=== PATIENT | male | born 1950 | race Caucasian/White ===

== ENCOUNTER 2019-01-31 09:53 | Outpatient (CLI) | payer OTHER, MEDICARE, SELFPAY ==
[2019-01-18 10:01] VITALS: BMI 37.0
--- NOTE | 2019-01-18 11:12 | HP_ITS ---
HPI HPI History of Present Illness Surgical H&P: Yes Details: This is a 68-year-old white male who presents today for outpatient cardiovascular consultation. He has been referred for concerns of shortness of breath/dyspnea, lower extremity edema, and findings of aortic valve stenosis and a sending aortic aneurysm. He states that he has had shortness of breath and dyspnea for at least 20 years which she is attributed to asthma. 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 He states that he has had a cardiac murmur ever since he has been a child. He denies any ongoing chest discomfort. He has not had orthopnea or PND. He has had the concerns of chronic shortness of breath and dyspnea and chronic lower extremity edema. There is been no near syncope or syncope. It appears he had a transthoracic echocardiogram performed at [facility] on 08/19/2013. According to the report the left ventricle was normal at that time with an LVEF of 63% with a report of severe aortic valve stenosis with a valve area reported at 0.8 cm? and a mildly dilated a sending aorta at 3.9 cm. He states the best of his knowledge she had no cardiovascular testing performed after that until this year. In October of this year through the [facility] system he had a transthoracic echocardiogram performed. According to the report his left ventricle was noted to have diminished LV systolic function with an estimated LVEF of approximately 41%. The aortic valve was reported as demonstrating severe aortic valve stenosis with an aortic valve area of 0.81 cm?. There was concern that he may have a low flow low gradient severe aortic valve stenosis. His aorta was reported as dilated at 4.2 cm. He states he has had no other cardiovascular testing performed. He notes his medications were altered. He was removed from HCTZ and amlodipine. He was placed on furosemide. He notes since being on furosemide his breathing has improved as well as his lower extremity edema. He states he was referred to the [facility] [place] to see a mobile marketing specialist. He states he was referred there to be considered for a possible aortic valve replacement [id number]. However he states he knows the mobile marketing specialist is not want to perform such a procedure and he also knows he is not seeing a cardiovascular surgeon. He states that he has no other information regarding his [facility] visit and prefers not to go to the [facility] at this time if he can be evaluated locally. Thus he requested follow-up with this office. He had an ECG performed in the office today. He was noted to be in sinus rhythm with a left axis deviation and a left anterior fascicular block and poor R wave progression. He had a nonspecific T wave abnormality. Intake Vital Signs 01/18/19 Height 5 ft 9 in 01/18/19 Weight: 251 lb 6 oz 01/18/19 Body Mass Index (BMI) 37.0 01/18/19 Blood Pressure 120/76 01/18/19 Blood Pressure Location Lt brachial 01/18/19 Respiratory Rate 16 01/18/19 Pulse Rate 72 01/18/19 Pulse Source Auscultation Intake Visit Reasons: CHF/Edema/Aortic valve stenosis/Ref. Roxann Montoya Sales Service Technician Required: No Accompanied by: Allergies No Known Allergies Allergy (Unverified 01/18/19 10:01) Medications albuterol sulfate 2.5 mg/3 mL (0.083 %) solution for nebulization 2.5 mg INHALATION Q4H PRN 01/09/19 [History Confirmed 01/18/19] albuterol sulfate HFA 90 mcg/actuation aerosol inhaler 2 puff INHALATION Q4H PRN g 01/09/19 [History Confirmed 01/18/19] atorvastatin 20 mg tablet 20 mg PO QHS 01/09/19 [History Confirmed 01/18/19] betamethasone valerate 0.1 % topical cream 1 applic TOPICAL BID 01/09/19 [History Confirmed 01/18/19] aspirin 81 mg tablet,delayed release 81 mg PO DAILY #1 tab 01/18/19 [Rx Confirmed 01/18/19] furosemide 40 mg tablet 40 mg PO DAILY 01/18/19 [History Confirmed 01/18/19] lisinopril 20 mg tablet 20 mg PO DAILY 01/18/19 [History Confirmed 01/18/19] potassium chloride ER 10 mEq tablet,extended release 20 meq PO DAILY tab 01/18/19 [History Confirmed 01/18/19] [facility] Medical History (Updated 01/18/19 @ 10:10 by Antonia Lopez) Asthma (Chronic) Mixed hyperlipidemia (Chronic) Ascending aorta dilatation (Chronic) Non-rheumatic aortic stenosis (Chronic) Essential hypertension (Chronic) Chronic systolic (congestive) heart failure (Chronic) Surgical History History of cholecystectomy (Resolved) History of hemorrhoidectomy (Resolved) History of inguinal hernia repair (Resolved) History of tonsillectomy and adenoidectomy (Resolved) Family History Mother Hypertension Father Diabetes Lymphoma Social History (Updated 01/18/19 @ 11:12 by Jerry Poole MD) Smoking Status: Former smoker alcohol intake: never substance use type: does not use caffeine: Yes Type: carbonated beverages Number of servings: 4, coffee Number of servings: 1 ROS Const Const: Negative for fatigue, weakness, frequent falls, excessive sweating, weight gain or weight loss Eyes Eyes: Negative for transient loss of vision, blurry vision or change in vision ENT ENT: Negative for dizziness or balance problems Cardio Chest Pain: No Palpitations: No Edema: None Muscle aches with walking: None Resp Respiratory: Positive for SOB with activity (baseline) and other (HX Asthma); negative for SOB at rest GI GI: Negative vomiting or vomiting blood/hematemesis : Negative for hematuria Musc Musc: Negative for muscle aches/ myalgia, muscle weakness, joint pain or balance problems Skin Skin: Negative non-healing lesions or rash Neuro Neuro: Negative for dizziness, lightheadedness, orthostatic symptoms, frequent falls, weakness or blurry vision Joshua Hematologic/Lymphatic: Negative for easy bleeding Endo Endo: Negative for fatigue or excessive sweating Psych Psych: Negative for anxiety or depression Allergy Allergy/Immunology: Negative for hives, Negative for rash Cardiology Exam Const Appearance: cooperative, healthy appearing, comfortable, no acute distress, well developed and well groomed Nutritional Appearance: overweight Orientation: alert, awake and oriented x3 Head Head: normal to inspection, normocephalic and atraumatic Ears: hearing grossly normal bilaterally Nose: external nose normal Face and Sinus: face symmetric Mouth: oral mucosae normal Teeth and gingiva: fair dentition Eyes Eyelids: eyelids normal Pupils: PERRL EOM: EOM intact bilaterally Neck Neck: normal visual inspection Carotids: normal carotid upstroke Chest Chest inspection: normal inspection of the chest, symmetric chest movement and normal respiratory effort Auscultation: Bilateral: Clear to Auscultation Cardio Palpation: normal PMI Rate: regular rate Rhythm: regular rhythm Heart sounds: S1 normal and diminished A2 Murmur: Grade 3/6, harsh, mid systolic, apex, LVOT and sternal notch GI GI: normal to inspection, soft and bowel sounds present Neuro General: alert, awake, gait normal and moves all extremities Skin Skin: no rashes or lesions noted Extremities Pulses: Normal: Right Radial Pulse, Left Radial Pulse Lower Extremity Edema: Trace: Bilateral Psych Psychological: normal affect Assessment & Plan 1. Non-rheumatic aortic stenosis I35.0 Plan He has history of having an cardiac murmur his whole life raises a question is whether or not he may have a bicuspid aortic valve. It appears there was a recommendation in 2013 for consideration for transesophageal echocardiogram although he states that was never performed. From the standpoint of his aortic valve this may be an etiology for some of his symptoms with his shortness of breath/dyspnea. It would not be unreasonable to further evaluate his aortic valve as to whether it is truly a bicuspid versus tricuspid aortic valve. This would include proceeding with a transesophageal echocardiogram. The procedure and risks were discussed with him. He was agreeable to this approach. Also, it would not be unreasonable to consider further evaluation with diagnostic cardiac catheterization. This would help gain additional information with respect to his hemodynamics as well as whether or not he has any underlying coronary artery disease contributing to his diminished LV systolic function. The procedure and risks were discussed with him and he was agreeable to this approach. In the meantime he will continue medical management. Orders Orders: 12 Lead EKG performed by [facility] Today Left & Right Heart Cath Today Echo Transesophageal (SULMA) Today Chest PA and Lateral Today 2. Ascending aorta dilatation I77.810 Plan He has ascending aorta is reported as dilated. He can proceed with further evaluation both noninvasively and invasively as noted above. However he may need a chest CT scan as well to further evaluate his thoracic aorta. Orders Orders: Left & Right Heart Cath Today Echo Transesophageal (SULMA) Today Chest PA and Lateral Today Chest WITH Contrast Today 3. Chronic systolic CHF (congestive heart failure) I50.22 Plan He does have symptoms compatible with CHF. They have improved with his diuretic therapy. As his LV function is diminished it would be prudent to consider further evaluation. Based upon his clinical scenario there would be concern as to whether or not not only does he have valvular heart disease but whether or not he has coronary artery disease contributing to his diminished LV systolic function. Thus further evaluation as noted above appears to be prudent at this time. The meantime he will continue medical therapy with the addition of aspirin 81 mg p.o. daily. Orders Orders: 12 Lead EKG performed by [facility] Today Left & Right Heart Cath Today Echo Transesophageal (SULMA) Today Chest PA and Lateral Today 4. Cardiomyopathy, unspecified type I42.9 Plan He is described as having a cardiomyopathy. Again it is unclear as to whether this is valvular related or potentially related to a another etiology such as underlying CAD. He does have CAD risk factors. Thus he will continue medical management and proceed with evaluation as noted above. 5. Mixed hyperlipidemia E78.2 Plan He will continue his lipid-lowering therapy. Orders Orders: Left & Right Heart Cath Today Echo Transesophageal (SULMA) Today Chest PA and Lateral Today 6. Essential hypertension I10 Plan He will continue his antihypertensive therapy. Orders Orders: 12 Lead EKG performed by [facility] Today Left & Right Heart Cath Today Echo Transesophageal (SULMA) Today Chest PA and Lateral Today Plan Detail Other Medications New: aspirin 81 mg PO DAILY 1 tab 0RF Additional Comments The patient states he recently had laboratory studies performed through the [facility] system. A copy will be requested for continuity of care purposes. Otherwise he will continue medications as noted above and proceed with further noninvasive and invasive evaluation as noted above. Once his evaluation is complete consideration can then be given, if deemed appropriate, for referral to a tertiary care center for a cardiovascular surgery opinion with respect to his aortic valve, ascending aorta, and if necessary coronary artery status, etc. Thank you for allowing me to participate in the care of your patient. Please don't hesitate to call if any issues arise. This note was generated using a voice recognition system and there may be incorrect words, spelling or punctuation that were not noted when reviewing the office note prior to saving. Follow Up 3 Months (PFM) 01/18/19 (copy of [facility] labs) Coding Level of Care Code Off vis,new,level 5 Diagnoses Non-rheumatic aortic stenosis I35.0 Ascending aorta dilatation I77.810 Chronic systolic CHF (congestive heart failure) I50.22 Cardiomyopathy, unspecified type I42.9 ??Cardiomyopathy type: unspecified Mixed hyperlipidemia E78.2 Essential hypertension I10 Coding Level of Care Code Off vis,new,level 5 Diagnoses Non-rheumatic aortic stenosis I35.0 Ascending aorta dilatation I77.810 Chronic systolic CHF (congestive heart failure) I50.22 Cardiomyopathy, unspecified type I42.9 ??Cardiomyopathy type: unspecified Mixed hyperlipidemia E78.2 Essential hypertension I10 Supplemental Info Supplemental Information Diagnostics Electrocardiogram 01/18/19 01/18/19 1112 <Electronically signed by Jerry post MD> Date _ Jerry Poole MD I have re-examined the patient. There are no clinical changes since date of exam.
--- NOTE | 2019-01-18 12:00 | RAD_ITS ---
STUDY: X-RAY CHEST REASON FOR EXAM: Male, 68 years old. Chest pain TECHNIQUE: PA and lateral views of the chest COMPARISON: None. FINDINGS: Mild left base atelectasis and/or small infiltrate is present. The lungs are otherwise clear. There are no pleural effusions. There is no pneumothorax. The heart is normal in size. The visualized osseous structures are within normal limits. RAD/Chest PA and Lateral IMPRESSION: Mild left base atelectasis and/or small infiltrate. Otherwise, unremarkable evaluation. Electronically Signed: Tima Marrufo, at 17:06 EDT Tel , Service support ,
[2019-01-18 12:39] LABS: Hematocrit 43.5 % (40-54); Hemoglobin 14.8 g/dL (13.0-16.5); Mean Corpuscular Hgb 29.8 pg (27.0-32.0); Mean Corpuscular Volume 87.5 fL (80-94); Mean Platelet Vol. 10.2 fl (6.2-12.0); Platelet Count 198 K/mm3 (150-450); RBC Distribution Width CV 13.1 % (11.6-14.6); RBC Distribution Width SD 41.5 fl (35.1-43.9); Red Blood Count 4.97 M/mm3 (4.6-6.2); White Blood Count 6.6 K/mm3 (4.4-11.0)
[2019-01-18 12:44] LABS: International Normalized Ratio 1.1; Prothrombin Time (Protime)PT. 14.3 SECONDS (11.7-14.9)
[2019-01-18 12:45] LABS: Partial Thromboplast Time 31.8 Seconds (24.1-36.2)
[2019-01-18 13:15] LABS: Anion Gap 8 (5-15); BUN 21 mg/dL (7-18); BUN/Creat Ratio 12.1 RATIO (10-20); Chloride 109 mmol/L (98-107); Creatinine, Serum 1.73 mg/dL (0.70-1.30); EST Glomerular Filtration Rate 42 mL/min (>60); Est Glom Filt Rate - Afr Amer 51 mL/min (>60); Glucose 86 mg/dL (74-106); Sodium Level 143 mmol/L (136-145)
--- NOTE | 2019-01-31 09:59 | ECHOTEE_ITS ---
Reason For Study: Murmur, Aortic Stenosis Medication SULMA probe 6VT-D (SN [id number]) passed without difficulty. No complications were noted. Cetacaine Topical [place] given X3 orally. Versed 2 mg given slow IVP. Fentanyl 100 mcg given slow IVP. Performed a rapid injection of agitated mix of 9 cc saline and 1cc air to assess for atrial septal defect. Left Ventricle Mild global left ventricular systolic dysfunction. The estimated ejection fraction is 40 %. Right Ventricle Normal systolic function. Atria Positive agitated saline contrast study for a right to left interatrial shunt with Valsalva c/w a PFO. The left atrium is mildly enlarged. There is no sponatenous contrast in the left atrium. No thrombus is detected in the left atrial appendage. Normal right atrium. There is no sponatenous contrast in the right atrium. No obvious RA / appendage thrombus indentified. Mitral Valve There is no mitral annular calcification. Mild diffuse mitral valve thickening. Mild (1+) mitral valve insufficiency. Tricuspid Valve The tricuspid valve is not well visualized. Trivial tricuspid valve insufficiency. Aortic Valve 2D echocardiograhic images appear c/w a bicuspid aortic valve. Severe focal aortic valve calcification. Trivial aortic valve insufficiency. Pulmonic Valve The pulmonic valve is not well visualized. Trivial pulmonic valve insufficiency. Vessels Aortic root appears dilated. Pericardium No pericardial effusion. Interpretation Summary Mild global left ventricular systolic dysfunction. The estimated ejection fraction is 40 %. The left atrium is mildly enlarged. There is no sponatenous contrast in the left atrium. No thrombus is detected in the left atrial appendage. Mild diffuse mitral valve thickening. Mild (1+) mitral valve insufficiency. Trivial tricuspid valve insufficiency. 2D echocardiograhic images appear c/w a bicuspid aortic valve. Severe focal aortic valve calcification. Trivial aortic valve insufficiency. Trivial pulmonic valve insufficiency. Positive agitated saline contrast study for a right to left interatrial shunt with Valsalva c/w a PFO. Aortic root appears dilated. Ordering Physician: Jerry Poole Referring Physician: Roxann Montoya Performed By: Rima Rizo RDCS
[2019-01-31 10:20] VITALS: BMI 35.9
[2019-01-31 13:46] LABS: Base Excess -1 mmol/L (-2 to +2); Bicarbonate 23.9 mmol/L (22-26); Blood Gas Specimen Type ART; PO2 93 mmHG (75-100); SO2 97 % (95-99); Total Carbon Dioxide 25 mmol/L; pCO2 39.1 mmHg (35-45); pH 7.39 (7.35-7.45)
[2019-01-31 13:46] LABS: Blood Gas Specimen Type VEN; VBG BASE EXCESS 1 mmol/L (-1.0-3.5); VBG Bicarbonate 27 mmol/L (22-26); VBG Oxygen Content 28 mmol/L (23-33); VBG PO2 40 mmHg (25-40); VBG SO2 72 % (50-70); VBG pH 7.35 (7.32-7.42)
[2019-01-31 13:46] LABS: Blood Gas Specimen Type VEN; VBG BASE EXCESS 1 mmol/L (-1.0-3.5); VBG Bicarbonate 27 mmol/L (22-26); VBG Oxygen Content 28 mmol/L (23-33); VBG PO2 38 mmHg (25-40); VBG SO2 69 % (50-70); VBG pH 7.34 (7.32-7.42)
[2019-01-31 13:46] LABS: Blood Gas Specimen Type VEN; VBG BASE EXCESS 3 mmol/L (-1.0-3.5); VBG Bicarbonate 28 mmol/L (22-26); VBG Oxygen Content 30 mmol/L (23-33); VBG PO2 37 mmHg (25-40); VBG SO2 68 % (50-70); VBG pCO2 49.2 mmHg (41-51); VBG pH 7.36 (7.32-7.42)
--- NOTE | 2019-01-31 14:14 | CL.D_ITS ---
Patient Name: ROSIE FARLEY Study Date: 01/31/2019 Performing: Jerry Poole MD Ht: 69 inches 175.26 cm : 1950 Wt: 243.7 lbs 110.54 kg Age: 68 Gender: male BSA: 2.25 PROCEDURE(S) PERFORMED DC11-AO ROOT ANGIO WITH HEART CATH RB59-NCW/LHC/COR CLINICAL PROFILE AND INDICATIONS Indications: Suspected CAD, Cardiomyopathy, Valvular Disease Heart Failure: NYHA Class: 2, Newly Diagnosed: No, Heart Failure Type: Systolic Stress/Imaging Stress/Image Study Performed: No Angina Classification Anginal Classification w/in 2 Weeks: No symptoms CAD Presentations: Other: shortness of breath; edema CONCLUSIONS Right heart pressures - mildly elevated The patient has pulmonary hypertension which is mild. 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 The risks and benefits of the procedure as well as a full d escription of our services here and current unavailability of surgical backup were fully explained to the patient and/or their significant other prior to the catheterization. The Timeout was completed, verifying the correct patient and procedure. The patient's procedural site was prepped and draped in the usual fashion. Local anesthetic was given subcutaneously to right groin region with Lidocaine 2%. Using a modified Seldinger technique, arterial access was obtained via the right femoral artery, a 4 Fr sheath was inserted Venous access was obtained via the right femoral vein, a 7Fr sheath was insert ed. A 7Fr thermal dilution catheter was inserted and right heart pressures were recorded, it was then advanced to PA position for cardiac outputs. Thermal dilution cardiac outputs were then recorded. O2 saturations were then obtained. The Thermal dilution catheter was then removed. Left Coronary Artery selective angiography was performed in multiple views using a 4 Fr. JL5 catheter. Rig ht Coronary Artery selective angiography was then performed in multiple views using a 4 Fr. 3DRC cath eter.The arterial sheath was pulled and manual compression applied until hemostasis is achieved.. The venous sheath was then pulled and manual compression applied until hemostasis achieved CORONARY ANGIOGRAPHY LEFT HEART ASSESSMENT Left Ventricular Ejection Fraction: Not assessed RIGHT HEART ASSESSMENT Thermal CO: 4.64 Thermal CI: 2.06 [place] CO: 5.95 [place]y CI: 2.64 PW: 15 PA: 34/3 14 RV: 36/3 7 RA: 20/04 4 PVR: -17 SVR: 1500 Right Heart pressures - elevated Pulmonary Hypertension Mild Intracardiac shunting: Calculated Qp/Qs ratio: 1.0 LEFT MAIN: Angiographically normal LEFT ANTERIOR DESCENDING ARTERY: Angiographically normal SEPTAL: SP1: Distal: angiographic findings / coronary flow findings appearing c/w findings associate d with an intramyocardial bridge phenomenon CIRCUMFLEX ARTERY: Angiographically normal RIGHT CORONARY ARTERY: Angiographically normal VALVE FINDINGS: Bicuspid Aortic Valve Aortic Valve Calcification - severe Severe Aortic Valve Calcification AORTIC ROOT: Dilated COMPLICATIONS No Complications PROCEDURE MEDICATIONS Baby Aspirin (81mg) 1 Tabs PO @ 01/31/2019 10:16:46 IV Fluids: .9 NaCl IV started @ 75 ml/hr 01/31/2019 10:16:54 SUMMARY OF HEMODYNAMIC DATA Time AIR REST ECG 10:28:18 RA 20/04 (4) SV 13:03:33 RV 36/3, 7 13:03:51 PW (15) PV 13:04:22 PA 34/3 (14) PA 13:05:47 AO 110/77 (91) SA 13:19:10 RM AIR REST 14:04:37 Type SV CO (l/m) CI (l/m/ HR Time AIR REST Thermal 64.40 4.64 2.06 72 10:28:18 [place] 82.60 5.95 2.64 72 10:28:18 Label % O2 Pres/Loc Time AIR REST SVC 69 13:17:33 IVC 72 SV 13:17:38 PA 68 PA 13:17:43 AO 97 PV 13:17:48 Signed By Jerry Poole MD On 01/31/2019 14:13:58 Jerry Poole MD
[2019-01-31 15:00] VITALS: BP 121/74; PULSE 69; RESP 16; O2SAT 98
[2019-01-31 15:19] VITALS: PULSE 77
[2019-01-31 15:30] VITALS: BP 123/76; PULSE 63; RESP 16; O2SAT 97
[2019-01-31 16:00] VITALS: BP 122/71; PULSE 68; RESP 16; O2SAT 94
[2019-01-31 17:00] VITALS: BP 141/85; PULSE 68; RESP 16; O2SAT 96
[2019-01-31 18:00] VITALS: BP 132/79; PULSE 68; RESP 16; O2SAT 96
== END 2019-01-31 18:15 | disposition home or self-care (01) ==
LOC: CVS 09:56 → PCU 15:14
PROVIDERS: Family Provider Nurse Practitioner Family; PCP Nurse Practitioner Family; Referring Provider Internal Medicine Cardiovascular Disease; Visit Provider Internal Medicine Cardiovascular Disease
DX: I25.10 Atherosclerotic heart disease of native coronary artery without angina pectoris (principal); E78.2 Mixed hyperlipidemia; I10 Essential (primary) hypertension; I35.0 Nonrheumatic aortic (valve) stenosis; I11.0 Hypertensive heart disease with heart failure; I50.22 Chronic systolic (congestive) heart failure; I77.810 Thoracic aortic ectasia; I42.9 Cardiomyopathy, unspecified; E66.3 Overweight; Z68.37 Body mass index [BMI] 37.0-37.9, adult; Z79.51 Long term (current) use of inhaled steroids; Z79.82 Long term (current) use of aspirin; Z79.899 Other long term (current) drug therapy; J45.909 Unspecified asthma, uncomplicated; Z87.891 Personal history of nicotine dependence
CPT/HCPCS: 36415; 71046; 80048; 82803; 85027; 85610; 85730; 93312; 93320; 93325; 93456; 93567; J7040; Q9967; A4216; C1751; C1769; C1894

== ENCOUNTER → 2019-02-02 | Outpatient (CLI) | payer OTHER, MEDICARE, SELFPAY ==
[2019-01-18 10:01] VITALS: BMI 37.0
[2019-01-31 10:20] VITALS: BMI 35.9
--- NOTE | 2019-02-02 12:49 | CT_ITS ---
STUDY: CT CHEST/THORAX WITH CONTRAST REASON FOR EXAM: Male, 68 years old. Ascending aortic aneurysm. History of hypertension and smoking. RADIATION DOSAGE (If Supplied By Facility): CTDIvol = ( 16.53 ) mGy, DLP = ( 750.16 ) mGycm TECHNIQUE: Transaxial imaging was performed following intravenous administration of IV Isovue 300 75. Individualized dose optimization techniques were used for this CT. COMPARISON: PA and lateral chest x-ray January 18, 2019. FINDINGS: Mildly lobulated solid 6 mm nodule with coarse calcification noted in the right upper lobe. Nearby is another 3 mm calcified granuloma, there is a mildly lobulated 5 mm calcified granuloma in the anterior inferior right upper lobe. 1-2 mm calcified granuloma seen in the right upper lobe near the minor fissure. Posteriorly in the right superior sulcus (series 2 image 23, series [id number]) is a 4.5 mm noncalcified nodular density. There is minor focal scarring in the lateral right upper lobe, and also a mildly irregular, elongated 7.5 mm nodular area of probable scarring in the inferolateral right upper lobe on series 2 image 44, series 6 and image 151. 3-4 mm focus of probable scarring seen in the superolateral periphery of the right middle lobe on series 2 image 65, series 6 and image 128. There is a 4.5 mm calcified granuloma in the medial anterior periphery of the right middle lobe on series 2 image 72 and a pair of calcified granulomata in the inferolateral right base on series 2 image 86. 4.5 mm calcified granuloma seen in the anterolateral periphery of the left lower lobe at the mid chest on series 2 image 65, series 602 image 182, and there is a 5 mm calcified granuloma along with mild scarring in the inferolateral periphery of the lingula on series 2 image 90, series 602 image 148. Minor curvilinear scarring also seen in the inferomedial periphery of the left lower lobe There is no demonstrated pleural abnormality. Normal heart and pericardium. Normal mediastinum. There is a 3.35 x 2.6 x 3.2 cm lobulated conglomerate of calcified lymph nodes in the right hilum. Smaller calcified lymph nodes are seen in the right infrahilar, subcarinal tissues, and left hilar tissues. Normal enhanced pulmonary arteries. There are dense calcifications at the aortic valve leaflets. There is minimal atherosclerotic calcification of the aortic arch and mildly elongated, tortuous descending thoracic aorta. The aortic caliber is normal. No demonstrated dissection. There are degenerative changes of the thoracic spine with multi-level bridging or nerve bridging thoracic endplate osteophytes. Degenerative arthrosis also seen at the sternomanubrial articulation. There are old healed fracture deformities of the posterolateral right 2-7 ribs. Surgical clips of prior cholecystectomy project at the gallbladder fossa. CT/Chest WITH Contrast IMPRESSION: 1. There are dense calcifications of the aortic valve leaflets. No descending aortic aneurysm, however. Mild atherosclerotic calcific plaquing of the mildly elongated and tortuous thoracic aorta. 2. There are findings of old calcified granulomatous disease, as described. A 4.5 mm noncalcified nodule seen also on the right upper lobe. Per Fleischner criteria, no specific radiographic follow-up is needed. 3. Old healed fracture deformities of the posterolateral right 2-7 ribs. 4. Prior cholecystectomy. Electronically Signed: Vahe Molina MD at 19:56 EDT , Service support ,
== END | disposition home or self-care (01) ==
LOC: CT 12:48
PROVIDERS: Family Provider Nurse Practitioner Family; PCP Nurse Practitioner Family; Referring Provider Internal Medicine Cardiovascular Disease; Visit Provider Internal Medicine Cardiovascular Disease
DX: I77.810 Thoracic aortic ectasia (principal)
CPT/HCPCS: 71260; Q9967

== ENCOUNTER → 2020-01-26 | Outpatient (CLI) | payer OTHER, MEDICARE, SELFPAY ==
[2020-01-26 18:44] LABS: ALB/GLOB Ratio 0.9 RATIO (0.9-2.4); AST(SGOT) 31 U/L (15-37); Alanine Aminotransfer ALT/SGPT 48 U/L (16-61); Albumin, Serum 3.9 g/dL (3.2-5.0); Alkaline Phosphatase 76 U/L (45-117); Anion Gap 6 (5-15); BUN 28 mg/dL (7-18); BUN/Creat Ratio 15.6 RATIO (10-20); Chloride 106 mmol/L (98-107); Cholesterol 188 mg/dL (200); EST Glomerular Filtration Rate 40 mL/min (>60); Est Glom Filt Rate - Afr Amer 49 mL/min (>60); Globulin 4.2 g/dL (2.2-4.2); Glucose 93 mg/dL (74-106); High Density Lipoprotein 32 mg/dL; Potassium 3.8 mmol/L (3.5-5.1); Protein, Total 8.1 g/dL (6.4-8.2); Sodium Level 137 mmol/L (136-145); Triglycerides 170 mg/dL; Very Low Density Lipoprotein 34 mg/dL (5-40)
== END | disposition home or self-care (01) ==
LOC: MFPLAB 16:48
PROVIDERS: PCP Family Medicine; Referring Provider Family Medicine; Visit Provider Family Medicine
DX: I10 Essential (primary) hypertension (principal); R97.20 Elevated prostate specific antigen [PSA]
CPT/HCPCS: 36415; 80053; 80061; 84153

== ENCOUNTER → 2020-07-26 16:11 | Outpatient (CLI) | payer OTHER, MEDICARE, SELFPAY ==
[2020-07-26 17:55] LABS: ALB/GLOB Ratio 0.9 RATIO (0.9-2.4); AST(SGOT) 31 U/L (15-37); Alanine Aminotransfer ALT/SGPT 53 U/L (16-61); Albumin, Serum 3.8 g/dL (3.2-5.0); Alkaline Phosphatase 91 U/L (45-117); Anion Gap 6 (5-15); BUN 23 mg/dL (7-18); Calcium,Total 9.4 mg/dL (8.5-10.1); Chloride 103 mmol/L (98-107); Creatinine, Serum 1.77 mg/dL (0.70-1.30); EST Glomerular Filtration Rate 41 mL/min (>60); Est Glom Filt Rate - Afr Amer 49 mL/min (>60); Globulin 4.3 g/dL (2.2-4.2); Glucose 99 mg/dL (74-106); PSA,Total- Diagnostic 6.75 ng/mL (0.0-4.0); Potassium 3.9 mmol/L (3.5-5.1); Protein, Total 8.1 g/dL (6.4-8.2); Sodium Level 138 mmol/L (136-145)
== END ==
PROVIDERS: PCP Family Medicine; Referring Provider Family Medicine; Visit Provider Family Medicine
DX: I10 Essential (primary) hypertension (principal); R97.20 Elevated prostate specific antigen [PSA]
CPT/HCPCS: 36415; 80053; 84153

== ENCOUNTER → 2021-09-05 | Outpatient (CLI) | payer OTHER, MEDICARE, SELFPAY ==
[2021-09-05 17:29] LABS: Absolute Neutrophil Count 3.7 X10^3/uL (2.0-7.7); Basophil# 0.08 X10^3/uL; Basophil% 1.4 % (0-1); Eosinophil# 0.46 X10^3/uL; Eosinophils% 7.8 % (0-5); Hemoglobin 15.1 g/dL (13.0-16.5); Lymphocyte % 15.3 % (19-41); Mean Corp Hgb Conc 34.3 g/dL (32-36); Mean Corpuscular Hgb 30.5 pg (27.0-32.0); Mean Corpuscular Volume 88.9 fL (80-94); Mean Platelet Vol. 10.5 fl (6.2-12.0); Monocyte# 0.69 X10^3/uL; Monocyte% 11.8 % (0-10); NRBC Flagged by Analyzer 0 % (0-5); Neutrophil # 3.72 X10^3/uL (2.7-7.7); Neutrophil % 63.4 % (47-70); Platelet Count 203 K/mm3 (150-450); RBC Distribution Width CV 13.2 % (11.6-14.6); RBC Distribution Width SD 42.6 fl (35.1-43.9); Red Blood Count 4.95 M/mm3 (4.6-6.2); White Blood Count 5.9 K/mm3 (4.4-11.0)
[2021-09-05 17:47] LABS: AST(SGOT) 41 U/L (15-37); Alanine Aminotransfer ALT/SGPT 74 U/L (16-61); Albumin, Serum 3.8 g/dL (3.2-5.0); Alkaline Phosphatase 82 U/L (45-117); Anion Gap 7 (5-15); BUN 29 mg/dL (7-18); BUN/Creat Ratio 16.6 RATIO (10-20); Calcium,Total 8.7 mg/dL (8.5-10.1); Chloride 106 mmol/L (98-107); Cholesterol 175 mg/dL (200); Creatinine, Serum 1.75 mg/dL (0.70-1.30); EST Glomerular Filtration Rate 41 mL/min (>60); Est Glom Filt Rate - Afr Amer 50 mL/min (>60); Globulin 3.9 g/dL (2.2-4.2); Glucose 96 mg/dL (74-106); High Density Lipoprotein 31 mg/dL; PSA,Total - Annual Screen 6.69 ng/mL (0.00-4.00); Potassium 3.8 mmol/L (3.5-5.1); Protein, Total 7.7 g/dL (6.4-8.2); Sodium Level 138 mmol/L (136-145); Triglycerides 320 mg/dL; Very Low Density Lipoprotein 64 mg/dL (5-40)
== END | disposition home or self-care (01) ==
LOC: MFPLAB 14:12
PROVIDERS: PCP Family Medicine; Referring Provider Family Medicine; Visit Provider Registered Nurse
DX: I10 Essential (primary) hypertension (principal); R97.20 Elevated prostate specific antigen [PSA]; Z12.5 Encounter for screening for malignant neoplasm of prostate
CPT/HCPCS: 36415; 80053; 80061; 84153; 85025; G0103

== ENCOUNTER → 2022-02-19 | Outpatient (CLI) | payer MEDICARE, SELFPAY ==
[2022-02-19 17:45] LABS: Absolute Lymphocyte Count 1.25 X10^3/uL (0.83-4.51); Absolute Neutrophil Count 3.8 X10^3/uL (2.0-7.7); Basophil# 0.07 X10^3/uL; Basophil% 1.1 % (0-1); Eosinophil# 0.37 X10^3/uL; Eosinophils% 5.9 % (0-5); Hematocrit 42.8 % (40-54); Hemoglobin 14.6 g/dL (13.0-16.5); Lymphocyte # 1.25 X10^3/ul (0.83-4.51); Lymphocyte % 19.9 % (19-41); Mean Corp Hgb Conc 34.1 g/dL (32-36); Mean Corpuscular Hgb 30.4 pg (27.0-32.0); Mean Platelet Vol. 10.8 fl (6.2-12.0); Monocyte# 0.79 X10^3/uL; Monocyte% 12.6 % (0-10); NRBC Flagged by Analyzer 0 % (0-5); Neutrophil # 3.78 X10^3/uL (2.7-7.7); Neutrophil % 60.2 % (47-70); Platelet Count 183 K/mm3 (150-450); RBC Distribution Width SD 42.4 fl (35.1-43.9); Red Blood Count 4.81 M/mm3 (4.6-6.2); White Blood Count 6.3 K/mm3 (4.4-11.0)
[2022-02-19 17:59] LABS: Anion Gap 5 (5-15); BUN 30 mg/dL (7-18); Calcium,Total 9.2 mg/dL (8.5-10.1); Chloride 108 mmol/L (98-107); Creatinine, Serum 1.67 mg/dL (0.70-1.30); EST Glomerular Filtration Rate 43 mL/min (>60); Est Glom Filt Rate - Afr Amer 53 mL/min (>60); Glucose 93 mg/dL (74-106); Potassium 3.7 mmol/L (3.5-5.1); Sodium Level 139 mmol/L (136-145)
== END | disposition home or self-care (01) ==
PROVIDERS: PCP Family Medicine
DX: Z01.810 Encounter for preprocedural cardiovascular examination (principal)
CPT/HCPCS: 36415; 80048; 85025

== ENCOUNTER → 2022-04-30 | Outpatient (CLI) | payer MEDICARE, OTHER, SELFPAY ==
[2022-04-30 12:21] LABS: Hemoglobin 11.1 g/dL (13.0-16.5); Mean Corp Hgb Conc 32.6 g/dL (32-36); Mean Corpuscular Hgb 31.1 pg (27.0-32.0); Mean Corpuscular Volume 95.2 fL (80-94); Mean Platelet Vol. 9.1 fl (6.2-12.0); Platelet Count 282 K/mm3 (150-450); RBC Distribution Width CV 14.6 % (11.6-14.6); RBC Distribution Width SD 50.5 fl (35.1-43.9); Red Blood Count 3.57 M/mm3 (4.6-6.2); White Blood Count 7.4 K/mm3 (4.4-11.0)
[2022-04-30 12:31] LABS: Anion Gap 2 (5-15); BUN 28 mg/dL (7-18); BUN/Creat Ratio 18.2 RATIO (10-20); Calcium,Total 9.1 mg/dL (8.5-10.1); Chloride 111 mmol/L (98-107); Creatinine, Serum 1.54 mg/dL (0.70-1.30); EST Glomerular Filtration Rate 48 mL/min (>60); Est Glom Filt Rate - Afr Amer 58 mL/min (>60); Glucose 98 mg/dL (74-106); Potassium 4.3 mmol/L (3.5-5.1); Sodium Level 142 mmol/L (136-145)
== END | disposition home or self-care (01) ==
PROVIDERS: PCP Family Medicine; Referring Provider Family Medicine; Visit Provider Family Medicine
DX: N28.9 Disorder of kidney and ureter, unspecified (principal); Z95.2 Presence of prosthetic heart valve
CPT/HCPCS: 36415; 80048; 85027